=== PATIENT | female | born 1960 | race Caucasian/White ===

== ENCOUNTER 2017-06-17 07:59 | Outpatient (CLI) | payer OTHER | END 2017-06-17 08:15 | disposition home or self-care (01) | LOC: TOM 07:59 | DX: K56.50 Intestinal adhesions [bands], unspecified as to partial versus complete obstruction (principal); Z12.11 Encounter for screening for malignant neoplasm of colon; K57.30 Diverticulosis of large intestine without perforation or abscess without bleeding ==